=== PATIENT | male | born 1930 | race Caucasian/White ===

== ENCOUNTER 2017-02-25 23:00 | Emergency (ER) | payer BC ==
[~2017-02-25] VITALS: Ht 167.6 cm; Wt 70.0 kg
[2017-02-25] MEDS ORDERED: ONDANSETRON HCL 4MG/2ML VIAL IV STA (23:46)
[2017-02-25] MEDS ORDERED: MORPHINE SULFATE 4 MG/ML CPJ (NOT FOR IM USE) IV STA (23:46)
[2017-02-26] MEDS ORDERED: ASPIRIN 81MG TABLET PO ONE
[2017-02-26 00:31] LABS: BASOPHILS % 1.4 % (0.0-2.0); EOSINOPHILS % 3.4 % (0.0-5.0); HEMATOCRIT. 26.2 % (42.0-52.0); HEMOGLOBIN. 8.6 g/dL (14.0-18.0); LYMPHOCYTES % 15.2 % (20.0-50.0); MEAN CORPUSCULAR HEMOGLOBIN 37.1 pg (28.0-32.0); MEAN CORPUSCULAR VOLUME 112.7 fL (80.0-94.0); MEAN PLATELET VOLUME 8.4 fl (7.4-10.4); MONOCYTES % 12.3 % (2.0-8.0); NEUTROPHILS % 67.7 % (40.0-76.0); PLATELET 134 x1000/uL (130-400); RED BLOOD CELL COUNT 2.33 mill/uL (4.7-6.1); RED CELL DISTRIBUTION WIDTH 17.3 % (11.6-14.6)
[2017-02-26 00:38] LABS: INR 1.2; PARTIAL THROMBOPLASTIN TIME 29.4 sec (23.4-31.0)
[2017-02-26 01:05] LABS: CARBON DIOXIDE 30 mEq/L (21-32); CHLORIDE 97 mEq/L (98-107); ETHANOL BLOOD < 10 mg/dL
[2017-02-26 02:21] LABS: PLATELET ESTIMATE NORMAL
[2017-02-26] MEDS ORDERED: HEPARIN 25,000 UNITS PREMIX 500 ML IV SCH (10:00)
[2017-02-26] MEDS ORDERED: IOHEXOL-350 100 ML BOTTLE ONE (12:37)
[2017-02-26 13:54] VITALS: BP 124/62
== END 2017-02-26 14:01 | disposition short-term general hospital (02) ==
LOC: ER 23:00
DX: M79.671 Pain in right foot (principal); R20.0 Anesthesia of skin; N28.9 Disorder of kidney and ureter, unspecified; R78.89 Finding of other specified substances, not normally found in blood; I73.9 Peripheral vascular disease, unspecified; Z90.49 Acquired absence of other specified parts of digestive tract; Z95.5 Presence of coronary angioplasty implant and graft; Z99.2 Dependence on renal dialysis
CPT/HCPCS: 36415; 71010; 71275; 75635; 80053; 83605; 84484; 85025; 85610; 85730; 93005; 93923; 96365; 99291; G0482; J1644; Q9967; Z7610; J2270; J2405